=== PATIENT | male | born 1980 | race Caucasian/White ===

== ENCOUNTER 2020-07-04 16:59 | Emergency (ER) | payer SELFPAY ==
[~2020-07-04] VITALS: Ht 190.5 cm; Wt 113.4 kg
[2020-07-04 17:04] VITALS: BP_SYST 91
[2020-07-04] MEDS ORDERED: NACL 0.9% 1,000 ML IV ONE (17:15)
[2020-07-04 17:41] LABS: BASOPHILS % (AUTO) 0.4 % (0.0-2.0); EOSINOPHILS # (AUTO) 0.1 K/uL (0.0-0.4); EOSINOPHILS % (AUTO) 1.3 % (0.0-4.0); HEMOGLOBIN 14.1 g/dL (14.0-18.0); LYMPHOCYTES # (AUTO) 1.8 K/uL (1.0-5.5); MEAN CORPUSCULAR HEMOGLOBIN 27 pg (27-31); MEAN CORPUSCULAR HGB CONC 32 % (32-36); MEAN CORPUSCULAR VOLUME 84 fL (79.0-98.0); MONOCYTES % (AUTO) 9.5 % (1.7-9.3); NEUTROPHILS # (AUTO) 7.4 K/uL (1.8-7.7); NEUTROPHILS % (AUTO) 71.8 % (40.0-70.0); PLATELET COUNT (AUTO) 251 K/uL (130-430); RED BLOOD CELL COUNT(AUTO) 5.26 MIL/uL (4.2-6.2); RED CELL DISTRIBUTION WIDTH 13.7 % (9.0-15.0); WHITE BLOOD COUNT (AUTO) 10.4 K/uL (4.8-10.8)
[2020-07-04 17:55] LABS: CALCIUM 9.2 mg/dL (8.4-11.0); CREATININE 1.17 mg/dL (0.55-1.30); POTASSIUM 4.9 mmol/L (3.5-5.1)
[2020-07-04 18:01] LABS: ALBUMIN 3.6 g/dL (3.4-4.8); TOTAL BILIRUBIN 0.2 mg/dL (0.0-1.0)
[2020-07-04 19:13] VITALS: BP_SYST 109
== END 2020-07-04 19:18 | disposition home or self-care (01) ==
LOC: SED 16:59
DX: K52.9 Noninfective gastroenteritis and colitis, unspecified (principal); R55 Syncope and collapse
CPT/HCPCS: 36415; 80053; 82550; 84484; 85025; 93005; 96360; 99284; J7030